=== PATIENT | female | born 1945 | race Caucasian/White ===

== ENCOUNTER → 2021-05-10 | Outpatient (CLI) | payer OTHER ==
[~2021-05-10] MED LIST: ACETAMINOPHEN325 M1 PO; AMBEREN PO; ASPIRIN325; ASPIRIN325 PO; AUGMENTIN 875875 MG PO; AZITHROMYCIN 2250 MG PO; BENZONATATE200 MG; BISACODYL SUPP10 MG RE; CICLOPIROX120 ML; COCET PLUS TAB1 EACH PO; CRESTOR40 MG; CRESTOR40 MG PO; CYCLOBENZAPRINE10 MG; DIOVAN PO; DIOVAN160 MG; DOCUSATE SODIU100 MG; DUONEB 2.5-0.5 M3 ML IH; ENABLEX15 MG; ENABLEX15 MG PO; FISH OIL 1,001000 MG PO; FISHOIL; FLEXERIL PO; FLOVENT DISKU100 MCG; FLOVENT HFA 2220 MC1 IH; FUROSEMIDE 20 M20 MG; GABAPENTIN100 MG PO; HUMALOG100 UNIT/1; ISORDIL10 MG; ISORDIL10 MG PO; LANTUS; LANTUS SC; LASIX 40 MG TAB40 M1 PO; LEVOTHROID150 MC1 PO; LEVOTHROID175 MCG; LOPRESSOR 50 MG50 M1; LOPRESSOR PO; LOPROX CREAM TOP; MEDROLDOSEPACK PO; MOM PO; MUCINEX600 MG PO; MULTIVITAMINS; NORCO 5-325 TA1 EACH PO; NOVOLOG100 UNIT/1 SC; NYSTATIN 1100000 U/M TOP; OXYGEN 2L/NC; PERCOCET 5-3251 EACH PO; PHENERGAN 25 MG25 M1 PO; PHENERGAN 25 MG25 MG PO; PHENERGAN50 MG/1 M1 IM; PROAIR HFA8.5 GM IH; PROVENTIL; SODIUM SULFACE; SPIRIVA; SUDAFED PE10 MG PO; SULFACETAMIDE118 ML TOP; TESSALON200 MG PO; TOBRAMYCIN SULFA5 ML OP; TRAMADOL 50 MG50 MG; TRAVATAN Z5 ML IO; ULTRAM 50MG TAB50 MG PO; VANDAZOLE GEL 070 GM; VANDAZOLE GEL 070 GM TOP; VITAMIN D1000 UNI1; VITAMIN D1000 UNI1 PO; ZANTAC 150MG T150 M1; ZANTAC 150MG T150 M1 PO
== END ==
LOC: SJCVCIMAG 08:20
PROVIDERS: ATTEND Internal Medicine Nephrology
DX: I35.8 Other nonrheumatic aortic valve disorders (principal); Z00.6 Encounter for examination for normal comparison and control in clinical research program